=== PATIENT | male | born 1975 | race Hispanic/Latino ===

== ENCOUNTER → 2019-04-25 | Outpatient (CLI) | payer OTHER ==
--- NOTE | 2019-04-25 14:46 | Diagnostic Imaging Report ---
EXAMINATION: CERVICAL SPINE 4 OR 5 VIEWS INDICATION: Neck pain COMPARISON: None FINDINGS: No acute fracture or dislocation. Cervical spine alignment is normal. The prevertebral soft tissues are normal in thickness. No substantial degenerative change. The minimally visualized lung apices appear clear. IMPRESSION: No acute osseous injury. Normal cervical spine alignment. Signed by: Shakila Bradshaw MD on 04/25/2019 2:43 PM
--- NOTE | 2019-04-25 14:50 | Diagnostic Imaging Report ---
EXAMINATION: SP LUMBAR, COMPLETE MIN 4VW, SACRUM X-RAY, HIP LEFT 2-3 VW (+/- PELVIS) INDICATION: Trauma, pain COMPARISON: None FINDINGS: Lumbar spine: No compression fracture. Lumbar spine alignment is anatomic. Vertebral body heights are maintained. No substantial degenerative change. Visualized bowel gas pattern is normal. Sacrum: No acute fracture or dislocation. Alignment is normal. Left hip: No acute fracture or dislocation. Anatomic alignment. No substantial degenerative change. IMPRESSION: Anatomic alignment and no acute osseous injury of the lumbar spine, sacrum and left hip. Signed by: Shakila Bradshaw MD on 04/25/2019 2:46 PM
== END ==
LOC: RAD 13:41
PROVIDERS: ATTEND Internal Medicine
DX: M47.812 Spondylosis without myelopathy or radiculopathy, cervical region (principal); M47.816 Spondylosis without myelopathy or radiculopathy, lumbar region; M16.12 Unilateral primary osteoarthritis, left hip
CPT/HCPCS: 72050; 72110; 72220